=== PATIENT | male | born 1990 | race African-American/Black ===

== ENCOUNTER 2016-11-25 02:54 | Emergency (ER) | payer MEDICAID ==
[~2016-11-25] VITALS: Ht 190.5 cm; Wt 83.9 kg
[~2016-11-25 02:54] MED LIST: NORCO 5-325 TA1 EACH ORAL
[2016-11-25] MEDS ORDERED: HYDROCODON-ACE1 EA15 ORAL (03:55)
--- NOTE | 2016-11-25 03:55 | Emergency Room Report ---
History of Present Illness General Chief Complaint: Back Pain-No Injury Source: Patient Present Illness HPI This is a 26-year-old male with no past medical history. He presents with chief complaint of lower back pain. Patient said that he has history of chronic lower back pain. MRI from a year ago showed L5-S1 disc bulge. He said is on the verge of rupture. He scheduled for another MRI next month. Patient complaining of lower back pain for the last few days. Not better with Motrin or ibuprofen. Denies any fever chills denies any trauma. No radiation. No incontinence of bowel or urine. Worse with movement. Allergies: Coded Allergies: PENICILLINS (Verified Allergy, Unknown, 09/05/16) Patient History Past Medical History: see triage record, old chart reviewed Past Surgical History: none Pertinent Family History: none Social History: Denies: smoking Immunizations: other Reviewed Nursing Documentation: PMH: Agreed, PSxH: Agreed Nursing Documentation-PMH Hx Neurological Problems: Yes - L1,S1 bulging disc Review of Systems Eye: Denies: blurred vision, eye pain ENT: Denies: ear pain, nose congestion, throat swelling Respiratory: Denies: cough, shortness of breath Cardiovascular: Denies: chest pain, palpitations Gastrointestinal: Denies: abdominal pain, diarrhea, nausea, vomiting Musculoskeletal: Reports: back pain, Denies: joint pain Skin: Denies: rash Neurological: Denies: headache, numbness Endocrine: Denies: increased thirst, increased urine Hematologic/Lymphatic: Denies: easy bruising All Other Systems: negative except mentioned in HPI Physical Exam Vital Signs Date Time Temp Pulse Resp B/P Pulse Ox O2 Delivery O2 Flow Rate FiO2 11/25/16 03:23 98.8 110 16 136/77 100 Room Air vitals her tachycardia Sp02 EP Interpretation: reviewed, normal General Appearance: well appearing, no apparent distress, alert Head: normocephalic, atraumatic Eyes: bilateral eye EOMI, bilateral eye PERRL ENT: hearing grossly normal, normal pharynx Neck: full range of motion, supple, no meningismus Respiratory: chest non-tender, lungs clear, normal breath sounds Cardiovascular #1: regular rate, rhythm, no murmur Gastrointestinal: normal bowel sounds, non tender, no mass, no organomegaly, no bruit, non-distended Musculoskeletal: gait/station normal, normal range of motion, other - No deformity. No percussive tenderness. Diffuse lower lumbar tenderness. No anesthesia. Psychiatric: mood/affect normal Skin: warm/dry Medical Decision Making Diagnostic Impression: Primary Impression: Back pain Qualified Codes: M54.5 - Low back pain ER Course Patient presents with lower back pain. Notice of cauda equina syndrome, spinal epidural abscess or neoplastic process. Question opioid dependence and drug- seeking behavior. Last Vital Signs Date Time Temp Pulse Resp B/P Pulse Ox O2 Delivery O2 Flow Rate FiO2 11/25/16 03:23 98.8 110 16 136/77 100 Room Air Status: improved Disposition: HOME, SELF-CARE Condition: Stable Scripts Hydrocodone/Acetaminophen 5-325* (HYDROCODONE/ACETAMINOPHEN 5-325*) 1 Each Tablet 1 TAB ORAL Q6H Y for For Pain, #20 TAB 0 Refills Prov: ELIJAH RYAN M.D. 11/25/16 Patient Instructions: Back Pain, Adult Additional Instructions: Followup with your Dr. in a week. Keep your MRI appointment. Return if worse. ELIJAH RYAN M.D. Nov 25, 2016 03:55
[2016-11-25] MEDS ORDERED: Norco 5mg/325mg tab ORAL ONE (04:00)
[2016-11-25 04:05] VITALS: BP 136/77
[2016-11-25 04:06] VITALS: BP 136/77
== END 2016-11-25 04:06 | disposition home or self-care (01) ==
LOC: EMR 04:00
DX: M54.5 Low back pain (principal); Z88.0 Allergy status to penicillin
CPT/HCPCS: 99283